=== PATIENT | female | born 1975 | race Caucasian/White ===

== ENCOUNTER 2016-12-29 12:16 | Outpatient (CLI) | payer MEDICARE, OTHER ==
[2016-10-30 13:41] VITALS: BP 134/79
--- NOTE | 2016-12-29 16:06 | Diagnostic Imaging Report ---
[facility] [address] [facility] [address] [address] Report Submission Date: Dec 29, 2016 3:33:09 PM LEAD ELECTRICAL CONTROLS ENGINEER Patient Study Name: SHELTON GORDON Date: Dec 29, 2016 12:27:51 PM LEAD ELECTRICAL CONTROLS ENGINEER Modality Type: CR Gender: F Description: PELVIS : 71 Institution: [facility] Physician: MARITZA ARCHULETA (SLAB OFF MILL TENDER) - OP 4 views of the pelvis History: RT HIP/ PELVIS, RT SIDED LOW BACK AND HIP PAIN, NO KNOWN INJURY findings: No comparison studies Sacroiliac joints are intact. Pelvic phleboliths are present. Sclerotic focus left iliac bone No evidence of acute fracture or dislocation of the pelvis,right hip Impression: No evidence of acute fracture or dislocation of the pelvis and right hip Joint spaces are preserved. Sacroiliac joints are intact Sclerotic focus left iliac bone, possible bone island Electronically signed on Dec 29, 2016 3:33:09 PM LEAD ELECTRICAL CONTROLS ENGINEER by: Michell BOB
--- NOTE | 2016-12-29 18:54 | Diagnostic Imaging Report ---
MARITZA ARCHULETA (MANAGER HIGHWAY) - OP [facility] [address] [facility] [address] Report Submission Date: Dec 29, 2016 5:07:19 PM PICTURES EDITOR Patient Study Name: SHELTON GORDON Date: Dec 29, 2016 12:35:20 PM PICTURES EDITOR Modality Type: CR Gender: F Description: SPINE : 71 Institution: [facility] Physician: MARITZA ARCHULETA (MANAGER HIGHWAY) - OP Lumbar spine 3 views Clinical history: Chronic low back pain There is slight marginal spurs is noted. Disc spaces are well maintained. No fractures or bone destruction. Impression: Minimal spurring along the lumbar spine Electronically signed on Dec 29, 2016 5:07:19 PM PICTURES EDITOR by: Maged BOB
== END 2016-12-29 12:17 ==
LOC: RAD 12:16
PROVIDERS: ATTEND Nurse Practitioner Family
DX: M54.5 Low back pain (principal)
CPT/HCPCS: 72100; 73502

== ENCOUNTER 2017-08-02 18:52 | Emergency (ER) | payer MEDICARE, OTHER ==
--- NOTE | 2017-08-02 19:09 | ED Physician Documentation ---
General Adult - HISTORIAN Historian: patient - HPI Chief Complaint: Dental Pain Onset: days ago Timing: still present, worse Severity: moderate Further Comments: yes (Sharp pain in the right face and ear area. When took some tramadol it helped some.) - ROS CONST: no problems. denies: fever - PAST HX Past History: other (anxiety) Other History: none (hypothyroidism) Surgeries/Procedures: hysterectomy (partial) Immunizations: referred to PCP Allergies/Adverse Reactions: Allergies Allergy/AdvReac Type Severity Reaction Status Date / Time Penicillins Allergy Verified 08/02/17 19:19 Home Medications: Ambulatory Orders Medication Instructions Recorded DULoxetine HCL [Cymbalta] 30 mg PO D 10/23/16 Levothyroxine Sodium [Unithroid] 175 mcg PO D 10/23/16 Lorazepam [Lorazepam] 0.5 mg PO BID 10/30/16 Mirtazapine [Mirtazapine] 45 mg PO HS 10/30/16 Prednisolone Acetate 10 ml OP BID #15 drops.susp 10/30/16 Clindamycin HCl [Cleocin] 300 mg PO QID #40 capsule 08/02/17 HYDROcodone /APAP 5/325 [Stanton 1 each PO Q4 PRN #15 tablet 08/02/17 5/325] - SOCIAL HX Smoking History: non-smoker Alcohol Use: none Drug Use: none - FAMILY HX Family History: No - VITAL SIGNS Vital Signs: Vital Signs Temp Pulse Resp BP Pulse Ox 134/79 10/30/16 15:21 - REVIEWED ASSESSMENTS Nursing Assessment Reviewed: Yes Vitals Reviewed: Yes General Adult Physical Exam - PHYSICAL EXAM GENERAL APPEARANCE: moderate distress EENT: eye inspection normal, ENT inspection normal, pharynx normal, no signs of dehydration, other (multiple dlenatl martínez, tender with some gum swelling to the right back molar) NECK: normal inspection, thyroid normal, supple, lymphadenopathy (mild submental right) RESPIRATORY: no resp distress, chest non-tender, breath sounds normal. No: wheezes, rales, rhonchi CVS: heart sounds normal, equal pulses, no murmur, no gallop, tachycardia (mild) SKIN: warm/dry, normal color EXTREMITIES: non-tender, normal range of motion NEURO: oriented X3, mood/affect nml, cognition normal Discharge Clincal Impression: Dental caries noted on examination Referrals: Urvashi Cortes, PRN [Primary Care Provider] - 2 Days Additional Instructions: Make sure you keep your dental appointment. Avoid irritating substances (HOT / COLD FOODS, DRINKS.) Take some Ibuprofen 400mg three times a day on a regular basis with food, supplement pain with hydrocodone. Keep appointment with Jocelyn Cortes tomorrow for further pain management. Condition: Stable Disposition: 01 HOME, SELF-CARE Decision to Admit: NO Date of Decison to Admit: 08/02/17 Decision Time: 19:17
[2017-08-02] MEDS ORDERED: KETOROLAC TROMETHAMINE 60 MG/2 ML VIAL IM ONE (19:16)
[2017-08-02 19:55] VITALS: BP 120/75
== END 2017-08-02 19:30 | disposition home or self-care (01) ==
LOC: ED 18:52
DX: K02.9 Dental caries, unspecified (principal)
CPT/HCPCS: 96372; 99283; J1885

== ENCOUNTER 2017-10-18 11:44 | Outpatient (CLI) | payer MEDICARE | END 2017-10-18 11:45 | LOC: CARD 11:44 | PROVIDERS: ATTEND Internal Medicine Cardiovascular Disease | DX: I42.9 Cardiomyopathy, unspecified (principal) | CPT/HCPCS: G0463 ==

== ENCOUNTER 2017-11-20 18:18 | Emergency (ER) | payer MEDICARE ==
[2017-11-20 18:52] VITALS: BP 95/63
--- NOTE | 2017-11-20 19:28 | ED Physician Documentation ---
Upper Respiratory Symptoms - HISTORIAN Historian: patient - HPI Stated Complaint: cough, sore throat Chief Complaint: Upper Respiratory Symptoms Onset: days ago Context: denies: recent foreign travel, insect bite(s), tick(s), recent chemotherapy, multiple patients, same sx, other Severity: mild Associated Symptoms: fever, chills, runny nose, sinus drainage, sore throat. 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 She states her ears pop when she coughs.) - ROS CONST/EYES: denies: weakness, eye redness, eye itching, other CVS/RESP: none LYMPH: denies: rash, ankle swelling GI/: none NEURO/PSYCH: denies: fainting, dizziness, confusion, anxiety, depression, other MS/SKIN: denies: joint pain, muscle aches, rash, other - PAST HX Lung Disease: none Other History: other (depression, hypothyroidism) Allergies/Adverse Reactions: Allergies Allergy/AdvReac Type Severity Reaction Status Date / Time Penicillins Allergy Verified 11/20/17 18:51 Home Medications: Ambulatory Orders Medication Instructions Recorded DULoxetine HCL [Cymbalta] 30 mg PO D 10/23/16 Levothyroxine Sodium [Unithroid] 175 mcg PO D 10/23/16 Lorazepam [Lorazepam] 0.5 mg PO BID 10/30/16 Mirtazapine [Mirtazapine] 45 mg PO HS 10/30/16 - SOCIAL HX Smoking History: cigarettes - FAMILY HX Family History: denies: none - VITAL SIGNS Vital Signs: Vital Signs Temp Pulse Resp BP Pulse Ox 97.6 F 85 18 95/63 100 11/20/17 18:46 11/20/17 18:46 11/20/17 18:46 11/20/17 18:46 11/20/17 18:46 - REVIEWED ASSESSMENTS Nursing Assessment Reviewed: Yes Vitals Reviewed: Yes ED Results Lab/Radiology - Orders Orders: ED Orders Category Date Time Status INFLUENZA A&B Stat Lab 11/20/17 18:39 Ordered Rapid Strep [GRP A STREP SCREEN] Stat Lab 11/20/17 19:08 Ordered Upper Respiratory Symptoms - EXAM General Appearance: no acute distress, alert EENT: eyes nml inspection, nml ENT inspection, lids & conjunct. nml, PERRL, ear nml, nose nml, pharynx nml, airway nml Respiratory: no resp. distress, breath sounds nml, no pain on inspiration, speaks full sentences, no pleuritic chest pain Abdomen: non-tender, no organomegaly, nml bowel sounds, no distention CVS: reg rate & rhythm, heart sounds normal, equal pulses, no murmur, no gallop , PMI nml, no JVD, no friction rub, 24 Skin: color nml, no rash, warm,dry Neuro/Psych: oriented x3, neuro intact, mood/affect nml, CN's nml as tested Discharge Clincal Impression: Viral syndrome Referrals: Urvashi Cortes PRN [Primary Care Provider] - 2 Days Additional Instructions: Treat your symptoms with over the counter medication. greenskeeper supervisor an over the counter decongestant such as pseudoped, dayquil and Nyquil at your pharmacy. You may want to try Vicks rub on your chest and/or feet. ( Caution: Dayquil and Nyquil contain 325mg of tyelnol/acetaminophen per tablespoon) Cough drops as needed for cough and sore throat. Increase your fluid intake juices, hot tea, non-caffeinated beverages Vitamin C may be helpful in decreasing the length of your cold. Use a humidifier in the room where you sleep. You can also sit in a steam filled bathroom 1-2 times a day. Tylenol every 4 hours 650mg -1000mg (do not exceed 4000mg in 24 hours) as needed for fever, pain and body aches. Alternate with Ibuprofen Ibuprofen 600-800mg every 6 hours as needed for fever, pain and body aches. See your primary care doctor if your symptoms become worse or do not improve in the next 2-3 days. Condition: Stable Disposition: 01 HOME, SELF-CARE Decision to Admit: NO Decision Time: 19:26
== END 2017-11-20 19:45 | disposition home or self-care (01) ==
LOC: ED 18:18
DX: B34.9 Viral infection, unspecified (principal); J02.9 Acute pharyngitis, unspecified; R05 Cough
CPT/HCPCS: 87070; 87400; 87880; 99283

== ENCOUNTER 2017-12-05 10:03 | Outpatient (CLI) | payer MEDICARE ==
--- NOTE | 2017-12-05 14:00 | Diagnostic Imaging Report ---
MARITZA ARCHULETA (CLAUDIO) - OP [facility] [address] [facility] [address] Report Submission Date: Dec 05, 2017 11:08:36 AM APPLICATIONS TESTER Patient Study Name: SHELTON GORDON Date: Dec 05, 2017 10:10:14 AM APPLICATIONS TESTER Modality Type: CR Gender: F Description: ABDOMEN : 71 Institution: [facility] Physician: MARITZA ARCHULETA (CLAUDIO) - OP Examination: Obstruction series History: Abdominal discomfort Findings: 2 views obtained of the abdomen. No abnormal dilation of the large or small bowel. Moderate amount of stool throughout the large bowel. No suspicious calcification projecting over the renal fossa or the lower pelvic region. Pelvic phleboliths. Osseous structures are appropriate for age. Impression: Moderate amount of large bowel stool. No obstruction. No suspicious calcifications by plain film sensitivity. Electronically signed on Dec 05, 2017 11:08:36 AM APPLICATIONS TESTER by: Christopher BOB
== END 2017-12-05 10:15 ==
LOC: RAD 10:03
PROVIDERS: ATTEND Nurse Practitioner Family
DX: K59.00 Constipation, unspecified (principal)
CPT/HCPCS: 74000

== ENCOUNTER 2017-12-09 09:30 | Emergency (ER) | payer MEDICARE, OTHER ==
--- NOTE | 2017-12-09 09:34 | ED Physician Documentation ---
General Adult - HISTORIAN Historian: patient, spouse - HPI Stated Complaint: Nausea, vomiting and cough x 4 weeks Chief Complaint: Nausea,Vomiting,Diarrhea Onset: other (4 weeks ago ) Timing: still present Severity: moderate Further Comments: yes (She is deaf so is speaking for her. He states this all started 4 weeks ago with flu like symptoms and she was tested for flu and it was negative. She [facility] - she was told she had a virus. She was noted to have increasing sinus pain and pressure and now cough is making her "vomit" does report "vomiti" is phglem. No fever recently. She does have nausea. she is schduled to have Upper scope for nausea and vomtiing issues. She is not on any meds for this issue.) Last known Well Code/Unknown Code: Unknown - ROS CONST: recent illness. denies: fever EYES/ENT: nasal drainage, nasal congestion CVS/RESP: cough. denies: chest pain, shortness of breath GI/: vomiting, nausea MS/SKIN/LYMPH: none NEURO/PSYCH: headache. denies: dizziness - PAST HX Past History: other (depression, deaf, Hypothyroidism ) Other History: other Surgeries/Procedures: hysterectomy, other Immunizations: UTD Allergies/Adverse Reactions: Allergies Allergy/AdvReac Type Severity Reaction Status Date / Time Penicillins Allergy Verified 12/09/17 09:56 Home Medications: Ambulatory Orders Medication Instructions Recorded DULoxetine HCL [Cymbalta] 30 mg PO D 10/23/16 Levothyroxine Sodium [Unithroid] 175 mcg PO D 10/23/16 Lorazepam [Lorazepam] 0.5 mg PO BID 10/30/16 Mirtazapine [Mirtazapine] 45 mg PO HS 10/30/16 Amoxicillin/Potassium Clav 1 each PO BID #20 tablet 12/09/17 [Augmentin 875-125 Tablet] Omeprazole [Prilosec] 40 mg PO D #30 capsule. 12/09/17 Ondansetron HCl Rapdis [Zofran Odt] 4 mg PO Q8 PRN #20 tab 12/09/17 - SOCIAL HX Smoking History: cigarettes Alcohol Use: none Drug Use: none - FAMILY HX Family History: No - VITAL SIGNS Vital Signs: Vital Signs Temp Pulse Resp BP Pulse Ox 95/63 11/20/17 19:45 - REVIEWED ASSESSMENTS Nursing Assessment Reviewed: Yes Vitals Reviewed: Yes ED Results Lab/Radiology - Radiology Radiology Impressions: Examination: PA and lateral chest. History: Evaluate lung tony. Comparison exam: None available for direct review. Findings: PA lateral chest demonstrate a normal cardiac and mediastinal silhouette. No focal infiltrate. No blunting of the costophrenic margins. Osseous structures are appropriate for age. Impression: No acute pulmonary process. Electronically signed on Dec 09, 2017 10:35:05 AM TEST PILOT by: Christopher Mcdonald General Adult Physical Exam - PHYSICAL EXAM GENERAL APPEARANCE: mild distress EENT: eye inspection normal, ENT inspection normal NECK: normal inspection RESPIRATORY: no resp distress, wheezes (expiratory on right upper ) CVS: reg rate & rhythm, heart sounds normal, equal pulses, no murmur ABDOMEN: soft, normal bowel sounds, no distension, non-tender SKIN: warm/dry, normal color EXTREMITIES: non-tender, normal range of motion NEURO: oriented X3, CN's nml as tested, motor nml, sensation nml Discharge Clincal Impression: Nausea Sinusitis Qualifiers: Sinusitis location: frontal Chronicity: acute Recurrence: non-recurrent Qualified Code(s): J01.10 - Acute frontal sinusitis, unspecified Prescriptions: Amoxicillin/Potassium Clav [Augmentin 875-125 Tablet] 1 each PO BID #20 tablet Omeprazole [Prilosec] 40 mg PO D #30 capsule. Ondansetron HCl Rapdis [Zofran Odt] 4 mg PO Q8 PRN #20 tab PRN Reason: Nausea / Vomiting Referrals: Urvashi Cortes, PRN [Primary Care Provider] - 2 Days Comments: Small bites Liquid or soft meals Zofran 4 mg every 8 hours as needed for nausea Omeprazole 40 mg daily Augmentin 825/125 mg BID x 10 days Increase fluids Follow up with PCP or ER for any concerning symptoms Condition: Stable Disposition: 01 HOME, SELF-CARE Decision to Admit: NO Date of Decison to Admit: 12/09/17 Decision Time: 10:41
[2017-12-09] MEDS ORDERED: ONDANSETRON HCL/PF 4 MG/ 2ML VIAL IVP ONE (09:58)
[2017-12-09] MEDS ORDERED: 0.9 % SODIUM CHLORIDE 1,000 ML IV ONE (09:58)
[2017-12-09 10:06] LABS: BASOPHILS % 1.4 (0.0-1.5); EOSINOPHILS % 6.5 % (0.0-6.8); MEAN CORPUSCULAR HEMOGLOBIN 30.7 pg (28.0-34.0); MEAN CORPUSCULAR VOLUME 90.6 fl (80.0-100.0); MONOCYTES % 5.8 % (0.0-11.0); NEUTROPHILS # 3.3 # k/uL (1.4-7.7)
[2017-12-09 10:12] LABS: eGFR (African) > 60; eGFR (Non-African) > 60
[2017-12-09 10:51] VITALS: BP 138/86
--- NOTE | 2017-12-09 12:42 | Diagnostic Imaging Report ---
TWAN MADSEN [facility] [address] [facility] [address] [place], [place]. [address] Report Submission Date: Dec 09, 2017 10:35:05 AM RESEARCH PROFESSOR OF BIOSTATISTICS Patient Study Name: SHELTON GORDON Date: Dec 09, 2017 10:19:42 AM RESEARCH PROFESSOR OF BIOSTATISTICS Modality Type: CR Gender: F Description: CHEST : 71 Institution: [facility] Physician: TWAN MADSEN Examination: PA and lateral chest. History: Evaluate lung tony. Comparison exam: None available for direct review. Findings: PA lateral chest demonstrate a normal cardiac and mediastinal silhouette. No focal infiltrate. No blunting of the costophrenic margins. Osseous structures are appropriate for age. Impression: No acute pulmonary process. Electronically signed on Dec 09, 2017 10:35:05 AM RESEARCH PROFESSOR OF BIOSTATISTICS by: Christopher BOB
== END 2017-12-09 10:48 | disposition home or self-care (01) ==
LOC: ED 09:30
DX: J01.10 Acute frontal sinusitis, unspecified (principal); R11.2 Nausea with vomiting, unspecified
CPT/HCPCS: 71020; 80053; 85025; 99282; 99283; J2405; J7030; S1016

== ENCOUNTER 2018-01-31 10:50 | Outpatient (CLI) | payer MEDICARE | END 2018-01-31 11:00 | LOC: CARD 10:50 | PROVIDERS: ATTEND Internal Medicine Cardiovascular Disease | DX: I42.9 Cardiomyopathy, unspecified (principal) | CPT/HCPCS: G0463 ==